=== PATIENT | male | born 1985 | race Asian ===

== ENCOUNTER → 2016-08-31 | Outpatient (CLI) | payer OTHER ==
[2016-08-31 20:17] LABS: AMPHETAMINE QUAL UR NONE DETECTED (NEG <=1000)
== END | disposition home or self-care (01) ==
LOC: LB 19:05
PROVIDERS: Family Medicine
DX: Z02.1 Encounter for pre-employment examination (principal); Z11.59 Encounter for screening for other viral diseases; Z73.3 Stress, not elsewhere classified
CPT/HCPCS: 80307; 86787

== ENCOUNTER → 2016-09-06 | Outpatient (CLI) | payer OTHER | END | disposition home or self-care (01) | LOC: RD 08:10 | DX: M79.672 Pain in left foot (principal) ==